=== PATIENT | female | born 1960 | race Caucasian/White ===

== ENCOUNTER 2017-10-06 08:17 | Inpatient (IN) | payer BC ==
[2017-10-06 08:44] LABS: ADD MAN DIFF? NO
[2017-10-06 08:54] LABS: TROPONIN BY ISTAT 0.01 ng/ml (<0.08)
[2017-10-06 08:59] LABS: ANION GAP 10 (6-14); BLOOD UREA NITROGEN 21 mg/dL (7-20); BUN/CREATININE RATIO 21 (6-20); CALCIUM 9.3 mg/dL (8.5-10.1); CARBON DIOXIDE 26 mmol/L (21-32); CHLORIDE 105 mmol/L (98-107); GFR 57.6; GLUCOSE 108 mg/dL (70-99); POTASSIUM 4.4 mmol/L (3.5-5.1); SODIUM 141 mmol/L (136-145)
[2017-10-06 09:05] LABS: ALBUMIN 3.7 g/dL (3.4-5.0); ALBUMIN/GLOBULIN RATIO 1.1 (1.0-1.7); ALK PHOS 104 U/L (46-116); ALT (SGPT) 36 U/L (14-59); AST (SGOT) 23 U/L (15-37); LIPASE 92 U/L (73-393); TOTAL BILIRUBIN 1.4 mg/dL (0.2-1.0)
[2017-10-06 09:08] LABS: BASO % 0 % (0-3); EOS % 0 % (0-3); HEMATOCRIT 38.4 % (36.0-47.0); HEMOGLOBIN 12.5 g/dL (12.0-15.5); LYMPH # 0.7 x10^3/uL (1.0-4.8); LYMPH % 15 % (24-48); MEAN CORPUSCULAR HEMOGLOBIN 30 pg (25-35); MEAN CORPUSCULAR HGB CONC 33 g/dL (31-37); MEAN CORPUSCULAR VOLUME 92 fL (79-100); MONO # 0.2 x10^3/uL (0.0-1.1); MONO % 5 % (0-9); NEUT # 3.9 x10^3uL (1.8-7.7); NEUT % 81 % (31-73); PLATELET COUNT 128 x10^3/uL (140-400); RED CELL DISTRIBUTION WIDTH 15.6 % (11.5-14.5); WHITE BLOOD COUNT 4.8 x10^3/uL (4.0-11.0)
[2017-10-06 09:11] LABS: NT-PRO BNP 7865 pg/mL (0-124)
[2017-10-06 09:13] LABS: CKMB MASS 0.6 ng/mL (0.0-3.6); CREATINE KINASE 40 U/L (26-192)
[2017-10-06 09:30] LABS: INFLUENZA A PATIENT NEGATIVE (NEGATIVE); INFLUENZA B PATIENT NEGATIVE (NEGATIVE); OBC FLU VALID
[2017-10-06 09:31] LABS: INR 1.1 (0.8-1.1); PROTHROMBIN TIME PATIENT 13.9 SEC (11.7-14.0)
[2017-10-06 09:34] LABS: D-DIMER 0.56 ug/mlFEU (0.00-0.50)
[2017-10-06 10:41] LABS: BILIRUBIN,URINE NEGATIVE (NEG); CLARITY,URINE CLEAR; COLOR,URINE AMBER; GLUCOSE,URINE NEGATIVE (NEG); NITRITE,URINE NEGATIVE (NEG); PROTEIN,URINE NEGATIVE (NEG-TRACE)
[2017-10-06 11:06] LABS: BACTERIA,URINE FEW /HPF (0-FEW); RBC,URINE OCC /HPF (0-2); SQUAMOUS EPITHELIAL CELL,UR FEW /LPF; WBC,URINE OCC /HPF (0-4)
[2017-10-06] MEDS: ONDANSETRON PF 4 MG/2 ML VIAL. IV ×4 (13:23→20:30)
[2017-10-06] MEDS: fentaNYL PF VIAL 100 MCG/2 ML VIAL IV ×2 (13:26)
[2017-10-06] MEDS: FUROSEMIDE 40 MG/4 ML VIAL. IVP ×2 (17:22)
[2017-10-06] MEDS: oxyCODONE/APAP 5/325 1 TAB TABLET PO ×2 (17:25)
[2017-10-06] MEDS: ENOXAPARIN 40 MG/0.4 ML SYRINGE. SQ ×2 (20:30)
[2017-10-06] MEDS: ACETAMINOPHEN 325 MG TABLET. PO ×2 (20:36)
[2017-10-07] MEDS: ACETAMINOPHEN 325 MG TABLET. PO ×6 (04:39→14:12)
[2017-10-07 06:28] LABS: ADD MAN DIFF? NO
[2017-10-07 06:50] LABS: BASO % 0 % (0-3); EOS % 0 % (0-3); HEMATOCRIT 36.2 % (36.0-47.0); HEMOGLOBIN 12.1 g/dL (12.0-15.5); LYMPH # 0.8 x10^3/uL (1.0-4.8); LYMPH % 17 % (24-48); MEAN CORPUSCULAR HEMOGLOBIN 30 pg (25-35); MEAN CORPUSCULAR HGB CONC 34 g/dL (31-37); MEAN CORPUSCULAR VOLUME 91 fL (79-100); MONO # 0.2 x10^3/uL (0.0-1.1); MONO % 5 % (0-9); NEUT # 3.6 x10^3uL (1.8-7.7); NEUT % 78 % (31-73); PLATELET COUNT 115 x10^3/uL (140-400); RED CELL DISTRIBUTION WIDTH 15.3 % (11.5-14.5); WHITE BLOOD COUNT 4.6 x10^3/uL (4.0-11.0)
[2017-10-07 07:14] LABS: FREE T4 1.06 ng/dL (0.76-1.46)
[2017-10-07 07:14] LABS: THYROID STIM HORMONE (TSH) 3.123 uIU/mL (0.358-3.74)
[2017-10-07 07:20] LABS: ALBUMIN 3.6 g/dL (3.4-5.0); ALBUMIN/GLOBULIN RATIO 1.2 (1.0-1.7); ALK PHOS 86 U/L (46-116); ALT (SGPT) 32 U/L (14-59); ANION GAP 6 (6-14); AST (SGOT) 20 U/L (15-37); BLOOD UREA NITROGEN 19 mg/dL (7-20); BUN/CREATININE RATIO 24 (6-20); CALCIUM 8.9 mg/dL (8.5-10.1); CARBON DIOXIDE 31 mmol/L (21-32); CHLORIDE 104 mmol/L (98-107); CREATININE 0.8 mg/dL (0.6-1.0); GFR 74.5; GLUCOSE 99 mg/dL (70-99); POTASSIUM 3.7 mmol/L (3.5-5.1); SODIUM 141 mmol/L (136-145); TOTAL BILIRUBIN 1.5 mg/dL (0.2-1.0); TOTAL PROTEIN 6.6 g/dL (6.4-8.2)
[2017-10-07] MEDS: ASPIRIN ENTERIC COATED 81 MG TABLET.DR. PO ×2 (09:43)
[2017-10-07] MEDS: FUROSEMIDE 40 MG/4 ML VIAL. IVP ×4 (09:43→17:21)
[2017-10-07] MEDS ORDERED: DOCUSATE SODIUM 100 MG CAPSULE. PO ×2 (13:30)
[2017-10-07] MEDS ORDERED: MORPHINE SULFATE 2 MG/ML DISP.SYRIN. IV ×2 (13:30)
[2017-10-07] MEDS ORDERED: hydrALAZINE 20 MG/ML VIAL. IVP ×2 (13:30)
[2017-10-07] MEDS ORDERED: ONDANSETRON PF 4 MG/2 ML VIAL. IV ×2 (13:30)
[2017-10-07] MEDS: ENOXAPARIN 40 MG/0.4 ML SYRINGE. SQ ×2 (17:22)
[2017-10-08 04:52] LABS: ADD MAN DIFF? NO
[2017-10-08 05:09] LABS: BASO % 0 % (0-3); EOS % 0 % (0-3); HEMATOCRIT 38.9 % (36.0-47.0); LYMPH # 0.9 x10^3/uL (1.0-4.8); LYMPH % 19 % (24-48); MEAN CORPUSCULAR HEMOGLOBIN 30 pg (25-35); MEAN CORPUSCULAR HGB CONC 33 g/dL (31-37); MEAN CORPUSCULAR VOLUME 90 fL (79-100); MONO # 0.2 x10^3/uL (0.0-1.1); MONO % 5 % (0-9); NEUT # 3.4 x10^3uL (1.8-7.7); NEUT % 75 % (31-73); PLATELET COUNT 123 x10^3/uL (140-400); RED BLOOD COUNT 4.31 x10^6/uL (3.50-5.40); RED CELL DISTRIBUTION WIDTH 15.3 % (11.5-14.5); WHITE BLOOD COUNT 4.6 x10^3/uL (4.0-11.0)
[2017-10-08 05:35] LABS: ANION GAP 8 (6-14); BLOOD UREA NITROGEN 22 mg/dL (7-20); CALCIUM 9.4 mg/dL (8.5-10.1); CARBON DIOXIDE 31 mmol/L (21-32); CHLORIDE 101 mmol/L (98-107); CREATININE 0.9 mg/dL (0.6-1.0); GLUCOSE 100 mg/dL (70-99); POTASSIUM 3.6 mmol/L (3.5-5.1); SODIUM 140 mmol/L (136-145)
[2017-10-08] MEDS: FUROSEMIDE 40 MG/4 ML VIAL. IVP ×4 (06:12→19:45)
[2017-10-08] MEDS: ACETAMINOPHEN 325 MG TABLET. PO ×2 (07:51)
[2017-10-08] MEDS: ASPIRIN ENTERIC COATED 81 MG TABLET.DR. PO ×2 (10:07)
[2017-10-08] MEDS ORDERED: LIDOCAINE 2% 20 ML VIAL. ×2 (13:39)
[2017-10-08] MEDS ORDERED: IOHEXOL 300 MG/ML 100ML VIAL. ×2 (13:39)
[2017-10-08] MEDS ORDERED: fentaNYL PF VIAL 100 MCG/2 ML VIAL ×2 (14:52)
[2017-10-08] MEDS ORDERED: MIDAZOLAM HCL/PF 2 MG/2 ML VIAL. ×2 (14:52)
[2017-10-08] MEDS: MIDAZOLAM HCL/PF 2 MG/2 ML VIAL. IV ×2 (15:00)
[2017-10-08] MEDS: IODIXANOL 320 MG/ML 100 ML VIAL. IART ×2 (15:00)
[2017-10-08] MEDS: LIDOCAINE 2% 20 ML VIAL. IJ ×2 (15:00)
[2017-10-08] MEDS: fentaNYL PF VIAL 100 MCG/2 ML VIAL IV ×2 (15:00)
[2017-10-08] MEDS ORDERED: CONTRAST GIVEN MC ×2 (15:15)
[2017-10-08] MEDS: TRIAMCINOLONE ACETONIDE 0.1% TOPICAL CREAM 15GM TUBE. TP ×6 (16:00→20:49)
[2017-10-08] MEDS: traMADol 50 MG TABLET PO ×2 (17:29)
[2017-10-08] MEDS: ENOXAPARIN 40 MG/0.4 ML SYRINGE. SQ ×2 (19:45)
[2017-10-09] MEDS: FUROSEMIDE 40 MG/4 ML VIAL. IVP ×4 (06:27→18:00)
[2017-10-09 06:42] LABS: ADD MAN DIFF? NO
[2017-10-09 06:53] LABS: BASO % 0 % (0-3); EOS % 0 % (0-3); HEMATOCRIT 41.8 % (36.0-47.0); HEMOGLOBIN 13.7 g/dL (12.0-15.5); LYMPH # 1.1 x10^3/uL (1.0-4.8); LYMPH % 28 % (24-48); MEAN CORPUSCULAR HEMOGLOBIN 31 pg (25-35); MEAN CORPUSCULAR HGB CONC 33 g/dL (31-37); MEAN CORPUSCULAR VOLUME 93 fL (79-100); MONO # 0.3 x10^3/uL (0.0-1.1); MONO % 7 % (0-9); NEUT # 2.5 x10^3uL (1.8-7.7); NEUT % 65 % (31-73); PLATELET COUNT 123 x10^3/uL (140-400); RED BLOOD COUNT 4.49 x10^6/uL (3.50-5.40); RED CELL DISTRIBUTION WIDTH 15.7 % (11.5-14.5); WHITE BLOOD COUNT 3.9 x10^3/uL (4.0-11.0)
[2017-10-09 07:14] LABS: ANION GAP 4 (6-14); BLOOD UREA NITROGEN 25 mg/dL (7-20); CALCIUM 9.7 mg/dL (8.5-10.1); CARBON DIOXIDE 37 mmol/L (21-32); CHLORIDE 100 mmol/L (98-107); CREATININE 0.9 mg/dL (0.6-1.0); GLUCOSE 85 mg/dL (70-99); SODIUM 141 mmol/L (136-145)
[2017-10-09 07:24] LABS: POTASSIUM 4.5 mmol/L (3.5-5.1)
[2017-10-09] MEDS: ASPIRIN ENTERIC COATED 81 MG TABLET.DR. PO ×2 (08:48)
[2017-10-09] MEDS: ACETAMINOPHEN 325 MG TABLET. PO ×2 (08:48)
[2017-10-09] MEDS: TRIAMCINOLONE ACETONIDE 0.1% TOPICAL CREAM 15GM TUBE. TP ×4 (11:35→21:23)
[2017-10-09] MEDS: ENOXAPARIN 40 MG/0.4 ML SYRINGE. SQ ×2 (19:48)
[2017-10-10] MEDS: FUROSEMIDE 40 MG/4 ML VIAL. IVP ×4 (06:18→18:04)
[2017-10-10] MEDS: ASPIRIN ENTERIC COATED 81 MG TABLET.DR. PO ×2 (08:12)
[2017-10-10] MEDS: ACETAMINOPHEN 325 MG TABLET. PO ×2 (08:12)
[2017-10-10] MEDS: TRIAMCINOLONE ACETONIDE 0.1% TOPICAL CREAM 15GM TUBE. TP ×4 (08:16→20:01)
[2017-10-10] MEDS ORDERED: ZOLPIDEM 5 MG TABLET. PO ×4 (11:45)
[2017-10-10 12:17] LABS: ADD MAN DIFF? NO
[2017-10-10 12:39] LABS: PROTHROMBIN TIME PATIENT 12.7 SEC (11.7-14.0)
[2017-10-10 12:40] LABS: ALBUMIN 4.4 g/dL (3.4-5.0); ALBUMIN/GLOBULIN RATIO 1.4 (1.0-1.7); ALK PHOS 102 U/L (46-116); ALT (SGPT) 35 U/L (14-59); ANION GAP 7 (6-14); AST (SGOT) 35 U/L (15-37); BASO % 0 % (0-3); BLOOD UREA NITROGEN 26 mg/dL (7-20); BUN/CREATININE RATIO 24 (6-20); CALCIUM 9.9 mg/dL (8.5-10.1); CARBON DIOXIDE 32 mmol/L (21-32); CHLORIDE 97 mmol/L (98-107); CREATININE 1.1 mg/dL (0.6-1.0); EOS % 0 % (0-3); GFR 51.6; GLUCOSE 107 mg/dL (70-99); HEMOGLOBIN 14.1 g/dL (12.0-15.5); LYMPH # 0.7 x10^3/uL (1.0-4.8); LYMPH % 15 % (24-48); MEAN CORPUSCULAR HEMOGLOBIN 30 pg (25-35); MEAN CORPUSCULAR HGB CONC 34 g/dL (31-37); MEAN CORPUSCULAR VOLUME 89 fL (79-100); MONO # 0.3 x10^3/uL (0.0-1.1); MONO % 7 % (0-9); NEUT # 3.8 x10^3uL (1.8-7.7); NEUT % 77 % (31-73); PARTIAL THROMBOPLASTIN TIME 51 SEC (24-38); PLATELET COUNT 134 x10^3/uL (140-400); POTASSIUM 4.3 mmol/L (3.5-5.1); RED BLOOD COUNT 4.74 x10^6/uL (3.50-5.40); SODIUM 136 mmol/L (136-145); TOTAL BILIRUBIN 0.7 mg/dL (0.2-1.0); TOTAL PROTEIN 7.5 g/dL (6.4-8.2); WHITE BLOOD COUNT 4.9 x10^3/uL (4.0-11.0)
[2017-10-10 20:09] LABS: MRSA BY PCR Negative (Negative)
[2017-10-11 03:45] LABS: POC GLUCOSE 105 mg/dL (70-99)
[2017-10-11] MEDS: HEPARIN 20,000 UNIT in IV RINGERS,LACTATED 1000ML 1,000 ML IRR (06:00)
[2017-10-11] MEDS: FUROSEMIDE 40 MG/4 ML VIAL. IVP ×2 (06:00)
[2017-10-11 06:39] LABS: ADD MAN DIFF? NO
[2017-10-11 06:56] LABS: BASO % 0 % (0-3); EOS % 0 % (0-3); HEMATOCRIT 39.9 % (36.0-47.0); HEMOGLOBIN 13.5 g/dL (12.0-15.5); LYMPH # 1.2 x10^3/uL (1.0-4.8); LYMPH % 32 % (24-48); MEAN CORPUSCULAR HEMOGLOBIN 30 pg (25-35); MEAN CORPUSCULAR HGB CONC 34 g/dL (31-37); MEAN CORPUSCULAR VOLUME 88 fL (79-100); MONO # 0.3 x10^3/uL (0.0-1.1); MONO % 9 % (0-9); NEUT # 2.2 x10^3uL (1.8-7.7); NEUT % 59 % (31-73); PLATELET COUNT 113 x10^3/uL (140-400); RED BLOOD COUNT 4.51 x10^6/uL (3.50-5.40); RED CELL DISTRIBUTION WIDTH 14.7 % (11.5-14.5); WHITE BLOOD COUNT 3.8 x10^3/uL (4.0-11.0)
[2017-10-11] MEDS: IV RINGERS,LACTATED 1000ML 1,000 ML IV ×4 (07:00→18:15)
[2017-10-11] MEDS ORDERED: PROCHLORPERAZINE 10 MG/2 ML VIAL. IV ×2 (07:00)
[2017-10-11] MEDS ORDERED: fentaNYL PF VIAL 100 MCG/2 ML VIAL IV ×4 (07:00)
[2017-10-11] MEDS ORDERED: LIDOCAINE 1% PF 2 ML VIAL. ID ×2 (07:00)
[2017-10-11] MEDS ORDERED: ONDANSETRON PF 4 MG/2 ML VIAL. IV ×2 (07:00)
[2017-10-11] MEDS ORDERED: MORPHINE SULFATE 2 MG/ML DISP.SYRIN. IV ×4 (07:00→16:30)
[2017-10-11] MEDS ORDERED: HYDROmorphone 2 MG/ML VIAL IV ×2 (07:00)
[2017-10-11 07:04] LABS: ANION GAP 4 (6-14); BLOOD UREA NITROGEN 28 mg/dL (7-20); CALCIUM 9.3 mg/dL (8.5-10.1); CARBON DIOXIDE 35 mmol/L (21-32); CHLORIDE 97 mmol/L (98-107); CREATININE 0.8 mg/dL (0.6-1.0); GFR 74.5; GLUCOSE 100 mg/dL (70-99); POTASSIUM 3.4 mmol/L (3.5-5.1); SODIUM 136 mmol/L (136-145)
[2017-10-11] MEDS ORDERED: GELATIN SPONGE SIZE 100. ×2 (07:38)
[2017-10-11] MEDS ORDERED: THROMBIN TOPICAL 20,000 UNIT SPRAY.SYRN KIT TP ×2 (07:38)
[2017-10-11] MEDS ORDERED: SURGICEL HEMOSTAT 4X8 EACH. ×2 (07:38)
[2017-10-11] MEDS ORDERED: SURGICEL NU-KNIT 3X4. ×2 (07:38)
[2017-10-11 08:26] LABS: POC GLUCOSE 124 mg/dL (70-99)
[2017-10-11] MEDS: TRIAMCINOLONE ACETONIDE 0.1% TOPICAL CREAM 15GM TUBE. TP ×4 (09:00→21:29)
[2017-10-11] MEDS ORDERED: MIDAZOLAM HCL/PF 5 MG/5 ML VIAL. ×2 (09:45)
[2017-10-11] MEDS ORDERED: SUFentanil 100 MCG/2 ML AMPUL. ×4 (09:45→12:27)
[2017-10-11] MEDS ORDERED: VECURONIUM BOLUS 10 MG VIAL. IV ×6 (09:45→14:26)
[2017-10-11] MEDS ORDERED: LIDOCAINE 2% PF Vial for OR 5 ML VIAL. ×6 (09:46→16:07)
[2017-10-11] MEDS ORDERED: WATER FOR INJECTION,STERILE 10 ML IJ ×6 (09:46→14:27)
[2017-10-11] MEDS ORDERED: ETOMIDATE 20 MG/10 ML VIAL. IV ×2 (09:46)
[2017-10-11] MEDS ORDERED: HEPARIN 30,000 UNIT/30 ML VIAL. ×6 (09:46→16:07)
[2017-10-11] MEDS ORDERED: EPINEPHrine SYRINGE 1 MG/10 ML SYRINGE ×2 (09:46)
[2017-10-11] MEDS ORDERED: AMINOCAPROIC ACID 5,000 MG/20 ML VIAL. IV ×8 (09:46→16:09)
[2017-10-11] MEDS ORDERED: ALBUMIN HUMAN 5% 500 ML IV ×2 (09:47)
[2017-10-11] MEDS ORDERED: NITROGLYCERIN PREMIX 250 ML IV ×2 (09:47)
[2017-10-11] MEDS ORDERED: PHENYLEPHRINE 10 MG/ML VIAL. ×6 (09:47)
[2017-10-11] MEDS ORDERED: ePHEDrine PF IN SALINE 50 MG/5 ML DISP.SYRIN IV (09:57)
[2017-10-11 10:28] LABS: HEMOGLOBIN A1C 4.6 % (4.8-5.6)
[2017-10-11] MEDS ORDERED: VANCOMYCIN 1.5 GM in IV DEXTROSE 5% 500 ML IV (11:00)
[2017-10-11] MEDS: VANCOMYCIN 1.5 GM in IV DEXTROSE 5% 500 ML IV ×2 (11:18→23:41)
[2017-10-11] MEDS: POTASSIUM CHLORIDE 15 MEQ, SODIUM BICARBONATE VIAL 12.5 MEQ in IV ELECTROLYTE-S (PH 7.4... IRR ×2 (12:58)
[2017-10-11] MEDS: POTASSIUM CHLORIDE 70 MEQ, SODIUM BICARBONATE VIAL 12.5 MEQ, LIDOCAINE 2% 24 ML in IV E... IRR ×2 (12:58)
[2017-10-11] MEDS ORDERED: ALBUMIN HUMAN 25% 100 ML IV ×4 (14:29→16:07)
[2017-10-11] MEDS ORDERED: AMIODARONE 150 MG/3 ML VIAL ×2 (14:35)
[2017-10-11] MEDS ORDERED: PROTAMINE 50 MG/5 ML VIAL. IV ×4 (14:44→15:49)
[2017-10-11] MEDS ORDERED: PROTAMINE 250 MG/25 ML VIAL IV ×4 (14:44→15:49)
[2017-10-11] MEDS ORDERED: AMIODARONE 900 MG in IV DEXTROSE 5% 500 ML IV (14:45)
[2017-10-11] MEDS ORDERED: HEPARIN for IV BOLUS 10,000 UNIT/10 ML VIAL. ×4 (15:41→16:07)
[2017-10-11] MEDS ORDERED: SODIUM BICARB ADULT 8.4% 50 MEQ/50 ML DISP.SYRIN. ×4 (15:41→16:08)
[2017-10-11] MEDS ORDERED: MANNITOL 25% 12.5 G/50 ML VIAL FOR OR. ×4 (15:41→16:07)
[2017-10-11] MEDS ORDERED: ALBUMIN HUMAN 25% 200 ML IV ×2 (15:41)
[2017-10-11] MEDS ORDERED: MAGNESIUM SULFATE 5 GM/10 ML VIAL. ×4 (15:41→16:07)
[2017-10-11] MEDS ORDERED: CALCIUM CHLORIDE 1,000 MG/10 ML DISP.SYRIN IV ×4 (15:41→16:08)
[2017-10-11 15:46] LABS: IMMEDIATE SPIN CROSSMATCH 1
[2017-10-11 16:10] LABS: IMMEDIATE SPIN CROSSMATCH 1
[2017-10-11 16:18] LABS: IMMEDIATE SPIN CROSSMATCH 1 4
[2017-10-11] MEDS: MINERAL OIL 10 ML VIAL MC ×2 (16:23)
[2017-10-11] MEDS ORDERED: MEPERIDINE PF 25 MG/ML VIAL. IV ×2 (16:30)
[2017-10-11] MEDS ORDERED: 0.9 % SODIUM CHLORIDE 10 ML DISP.SYRIN. IV ×2 (16:30)
[2017-10-11] MEDS ORDERED: INSULIN REGULAR VIAL 150 UNIT in 0.9 % SODIUM CHLORIDE 150ML 150 ML IV (16:30)
[2017-10-11] MEDS ORDERED: METOCLOPRAMIDE HCL 10 MG/2 ML VIAL. IV ×2 (16:30)
[2017-10-11] MEDS ORDERED: ACETAMINOPHEN 325 MG TABLET. PO ×2 (16:30)
[2017-10-11] MEDS ORDERED: ALBUTEROL SULFATE 2.5 MG/3 ML NEBU. NEB ×2 (16:30)
[2017-10-11] MEDS ORDERED: BISACODYL 10 MG SUPP.RECT. PR ×2 (16:30)
[2017-10-11] MEDS ORDERED: ELECTROLYTE (ICU) PROTOCOL. MC ×2 (16:30)
[2017-10-11] MEDS ORDERED: DEXTROSE 50% 25 GM / 50ML DISP.SYRIN. IV ×2 (16:30)
[2017-10-11] MEDS ORDERED: ASPIRIN 300 MG SUPP.RECT PR ×2 (16:30)
[2017-10-11] MEDS ORDERED: KCL PER PROTOCOL MC ×2 (16:30)
[2017-10-11 16:53] LABS: HEMATOCRIT 23.2 % (36.0-47.0); HEMOGLOBIN 7.9 g/dL (12.0-15.5); PLATELET COUNT 61 x10^3/uL (140-400); WHITE BLOOD COUNT 5.7 x10^3/uL (4.0-11.0)
[2017-10-11] MEDS ORDERED: fentaNYL PF VIAL 100 MCG/2 ML VIAL ×2 (16:55)
[2017-10-11 17:02] LABS: INR 1.6 (0.8-1.1); PARTIAL THROMBOPLASTIN TIME 45 SEC (24-38); PROTHROMBIN TIME PATIENT 18.3 SEC (11.7-14.0)
[2017-10-11 17:03] LABS: FIBRINOGEN 155 mg/dL (200-440)
[2017-10-11 17:29] LABS: ART BE ISTAT 7 mmol/L (0-3); ART BE ISTAT 8 mmol/L (0-3); ART BE ISTAT 9 mmol/L (0-3); ART GLUC ISTAT 103 mg/dL (70-99); ART GLUC ISTAT 105 mg/dL (70-99); ART GLUC ISTAT 124 mg/dL (70-99); ART HCO3 ISTAT 30 mmol/L (21-28); ART HCO3 ISTAT 31 mmol/L (21-28); ART HCO3 ISTAT 32 mmol/L (21-28); ART HCT ISTAT 26 % (36-40); ART HCT ISTAT 30 % (36-40); ART HGB ISTAT 10.2 g/dL (12-15); ART HGB ISTAT 8.8 g/dL (12-15); ART ION CA ISTAT 1.05 mmol/L (1.13-1.32); ART ION CA ISTAT 1.07 mmol/L (1.13-1.32); ART ION CA ISTAT 1.08 mmol/L (1.13-1.32); ART K ISTAT 2.9 mmol/L (3.5-5.0); ART K ISTAT 4.3 mmol/L (3.5-5.0); ART NA ISTAT 134 mmol/L (135-145); ART NA ISTAT 135 mmol/L (135-145); ART NA ISTAT 136 mmol/L (135-145); ART PCO2 ISTAT 35 mmHg (35-45); ART PCO2 ISTAT 36 mmHg (35-45); ART PCO2 ISTAT 38 mmHg (35-45); ART PH ISTAT 7.51 (7.35-7.45); ART PH ISTAT 7.54 (7.35-7.45); ART PH ISTAT 7.55 (7.35-7.45); ART PO2 ISTAT 314 mmHg (75-100); ART PO2 ISTAT 343 mmHg (75-100); ART PO2 ISTAT 345 mmHg (75-100); ART SAT O2 SAT 100 % (95-99); ART TCO2 ISTAT 31 mmol/L (21-32); ART TCO2 ISTAT 32 mmol/L (21-32); ART TCO2 ISTAT 33 mmol/L (21-32); FIO2 ISTAT 100; TOSPEC ART; TOSPEC VEN; VEN BASE EXCESS ISTAT 5 mmol/L (0-3); VEN GLUC ISTAT 169 mg/dL (70-99); VEN HCO3 ISTAT 30 mmol/L (24-28); VEN HCT ISTAT 35 % (36-40); VEN HGB ISTAT 11.9 g/dL (12-15); VEN ION CA ISTAT 1.22 mmol/L (1.13-1.32); VEN K ISTAT 3.5 mmol/L (3.5-5.0); VEN NA ISTAT 133 mmol/L (135-145); VEN O2 ISTAT 41 mmHg (20-40); VEN PCO2 ISTAT 45 mmHg (41-51); VEN PH ISTAT 7.43 (7.32-7.42); VEN SO2 ISTAT 77 %; VEN TCO2 ISTAT 31 mmol/L (21-32)
[2017-10-11 17:30] LABS: ART BE ISTAT 12 mmol/L (0-3); ART BE ISTAT 2 mmol/L (0-3); ART BE ISTAT 5 mmol/L (0-3); ART GLUC ISTAT 101 mg/dL (70-99); ART GLUC ISTAT 270 mg/dL (70-99); ART GLUC ISTAT 83 mg/dL (70-99); ART GLUC ISTAT 90 mg/dL (70-99); ART HCO3 ISTAT 25 mmol/L (21-28); ART HCO3 ISTAT 26 mmol/L (21-28); ART HCO3 ISTAT 34 mmol/L (21-28); ART HCT ISTAT 19 % (36-40); ART HCT ISTAT 22 % (36-40); ART HCT ISTAT 25 % (36-40); ART HCT ISTAT 33 % (36-40); ART HGB ISTAT 11.2 g/dL (12-15); ART HGB ISTAT 6.5 g/dL (12-15); ART HGB ISTAT 7.5 g/dL (12-15); ART HGB ISTAT 8.5 g/dL (12-15); ART ION CA ISTAT 1.13 mmol/L (1.13-1.32); ART ION CA ISTAT 1.43 mmol/L (1.13-1.32); ART ION CA ISTAT 1.49 mmol/L (1.13-1.32); ART ION CA ISTAT 1.75 mmol/L (1.13-1.32); ART K ISTAT 3.4 mmol/L (3.5-5.0); ART K ISTAT 3.7 mmol/L (3.5-5.0); ART K ISTAT 4.4 mmol/L (3.5-5.0); ART NA ISTAT 131 mmol/L (135-145); ART NA ISTAT 137 mmol/L (135-145); ART NA ISTAT 139 mmol/L (135-145); ART PCO2 ISTAT 28 mmHg (35-45); ART PCO2 ISTAT 32 mmHg (35-45); ART PCO2 ISTAT 42 mmHg (35-45); ART PH ISTAT 7.53 (7.35-7.45); ART PH ISTAT 7.55 (7.35-7.45); ART PH ISTAT 7.59 (7.35-7.45); ART PO2 ISTAT 146 mmHg (75-100); ART PO2 ISTAT 217 mmHg (75-100); ART PO2 ISTAT 294 mmHg (75-100); ART PO2 ISTAT 392 mmHg (75-100); ART SAT O2 SAT 100 % (95-99); ART TCO2 ISTAT 26 mmol/L (21-32); ART TCO2 ISTAT 27 mmol/L (21-32); ART TCO2 ISTAT 36 mmol/L (21-32); FIO2 ISTAT 100; TOSPEC ART; TOSPEC VEN; VEN BASE EXCESS ISTAT -1 mmol/L (0-3); VEN GLUC ISTAT 104 mg/dL (70-99); VEN HCO3 ISTAT 23 mmol/L (24-28); VEN HCT ISTAT 23 % (36-40); VEN HGB ISTAT 7.8 g/dL (12-15); VEN ION CA ISTAT 1.11 mmol/L (1.13-1.32); VEN K ISTAT 3.3 mmol/L (3.5-5.0); VEN NA ISTAT 141 mmol/L (135-145); VEN O2 ISTAT 34 mmHg (20-40); VEN PCO2 ISTAT 30 mmHg (41-51); VEN PH ISTAT 7.49 (7.32-7.42); VEN SO2 ISTAT 71 %; VEN TCO2 ISTAT 24 mmol/L (21-32)
[2017-10-11 18:13] LABS: BASE EXCESS COOX 2 mmol/L (-3-3); CARBON MONOXIDE 0.3 % (0.0-1.9); HCO3 COOX 25 mmol/L (21-28); METHEMOGLOBIN 0.3 % (0.0-1.9); OXYHEMOGLOBIN 98.3 %; PCO2 COOX 34 mmHg (35-46); PH COOX 7.49 (7.35-7.45); PO2 COOX 319 mmHg (75-108); SAT O2 COOX 99 % (92-99); TOTAL HEMOGLOBIN 10.2 g/dL
[2017-10-11] MEDS: MORPHINE SULFATE 4 MG/ML DISP.SYRIN. IV ×6 (18:14→22:35)
[2017-10-11 18:15] LABS: FIO2 COOX 100
[2017-10-11] MEDS: PROPOFOL 100 ML IV ×2 (18:16)
[2017-10-11 18:24] LABS: POC GLUCOSE 116 mg/dL (70-99)
[2017-10-11] MEDS: ALBUMIN HUMAN 5% 250 ML IV ×4 (18:39→19:58)
[2017-10-11 18:52] LABS: HEMATOCRIT 28.2 % (36.0-47.0); HEMOGLOBIN 9.6 g/dL (12.0-15.5); MEAN CORPUSCULAR HEMOGLOBIN 31 pg (25-35); MEAN CORPUSCULAR HGB CONC 34 g/dL (31-37); MEAN CORPUSCULAR VOLUME 89 fL (79-100); PLATELET COUNT 72 x10^3/uL (140-400); RED BLOOD COUNT 3.16 x10^6/uL (3.50-5.40); RED CELL DISTRIBUTION WIDTH 14.6 % (11.5-14.5); WHITE BLOOD COUNT 7.3 x10^3/uL (4.0-11.0)
[2017-10-11 19:01] LABS: INR 1.4 (0.8-1.1); PARTIAL THROMBOPLASTIN TIME 35 SEC (24-38); PROTHROMBIN TIME PATIENT 16.3 SEC (11.7-14.0)
[2017-10-11 19:03] LABS: ANION GAP 11 (6-14); BLOOD UREA NITROGEN 22 mg/dL (7-20); CALCIUM 10.2 mg/dL (8.5-10.1); CARBON DIOXIDE 25 mmol/L (21-32); CHLORIDE 105 mmol/L (98-107); CREATININE 0.8 mg/dL (0.6-1.0); GFR 74.5; GLUCOSE 121 mg/dL (70-99); MAGNESIUM 2.5 mg/dL (1.8-2.4); SODIUM 141 mmol/L (136-145)
[2017-10-11] MEDS: POTASSIUM CHLORIDE 20MEQ 50 ML IV ×2 (19:50)
[2017-10-11] MEDS: INSULIN REGULAR VIAL 150 UNIT in 0.9 % SODIUM CHLORIDE 150ML 150 ML IV (21:27)
[2017-10-11 21:28] LABS: BASE EXCESS ABG 1 mmol/L (-3-3); HCO3 ABG 27 mmol/L (21-28); PCO2 ABG 47 mmHg (35-46); PH ABG 7.37 (7.35-7.45); PO2 ABG 98 mmHg (75-108); SAT O2 ABG 96 % (92-99)
[2017-10-11] MEDS: FAMOTIDINE 20 MG/2 ML VIAL IVP ×2 (21:29)
[2017-10-11] MEDS: SENNOSIDES/DOCUSATE 8.6/50MG TABLET. PO ×2 (21:30)
[2017-10-11 21:32] LABS: FIO2 ABG 40
[2017-10-11] MEDS: ONDANSETRON PF 4 MG/2 ML VIAL. IV ×2 (21:39)
[2017-10-11 22:18] LABS: POC GLUCOSE 150 mg/dL (70-99)
[2017-10-11 22:18] LABS: POC GLUCOSE 151 mg/dL (70-99)
[2017-10-11 22:19] LABS: HEMATOCRIT 25.2 % (36.0-47.0); HEMOGLOBIN 8.6 g/dL (12.0-15.5); MEAN CORPUSCULAR HGB CONC 34 g/dL (31-37)
[2017-10-11 23:12] LABS: POC GLUCOSE 123 mg/dL (70-99)
[2017-10-11] MEDS: oxyCODONE/APAP 5/325 1 TAB TABLET PO ×2 (23:57)
[2017-10-12] MEDS: POTASSIUM CHLORIDE 20MEQ 50 ML IV ×2 (00:03)
[2017-10-12] MEDS: MORPHINE SULFATE 4 MG/ML DISP.SYRIN. IV ×8 (00:03→20:33)
[2017-10-12 00:19] LABS: POC GLUCOSE 162 mg/dL (70-99)
[2017-10-12] MEDS: oxyCODONE/APAP 5/325 1 TAB TABLET PO ×16 (00:39→18:37)
[2017-10-12] MEDS: KETOROLAC 15 MG/ML VIAL. IV ×2 (01:02)
[2017-10-12 01:10] LABS: POC GLUCOSE 183 mg/dL (70-99)
[2017-10-12 02:07] LABS: POC GLUCOSE 154 mg/dL (70-99)
[2017-10-12 03:45] LABS: POC GLUCOSE 134 mg/dL (70-99)
[2017-10-12 04:23] LABS: POC GLUCOSE 121 mg/dL (70-99)
[2017-10-12 06:11] LABS: HEMATOCRIT 24.5 % (36.0-47.0); HEMOGLOBIN 8.3 g/dL (12.0-15.5); MEAN CORPUSCULAR HEMOGLOBIN 31 pg (25-35); MEAN CORPUSCULAR HGB CONC 34 g/dL (31-37); MEAN CORPUSCULAR VOLUME 90 fL (79-100); PLATELET COUNT 55 x10^3/uL (140-400); RED BLOOD COUNT 2.72 x10^6/uL (3.50-5.40); RED CELL DISTRIBUTION WIDTH 14.6 % (11.5-14.5); WHITE BLOOD COUNT 6.3 x10^3/uL (4.0-11.0)
[2017-10-12 06:32] LABS: ANION GAP 7 (6-14); BLOOD UREA NITROGEN 22 mg/dL (7-20); CALCIUM 8.8 mg/dL (8.5-10.1); CARBON DIOXIDE 25 mmol/L (21-32); CHLORIDE 105 mmol/L (98-107); CREATININE 0.8 mg/dL (0.6-1.0); GFR 74.5; GLUCOSE 136 mg/dL (70-99); MAGNESIUM 2.1 mg/dL (1.8-2.4); SODIUM 137 mmol/L (136-145)
[2017-10-12 06:36] LABS: POTASSIUM 4.7 mmol/L (3.5-5.1)
[2017-10-12 07:06] LABS: POC GLUCOSE 142 mg/dL (70-99)
[2017-10-12 07:06] LABS: POC GLUCOSE 126 mg/dL (70-99)
[2017-10-12] MEDS: ASPIRIN ENTERIC COATED 325 MG TABLET.DR. PO ×2 (07:47)
[2017-10-12] MEDS: SENNOSIDES/DOCUSATE 8.6/50MG TABLET. PO ×4 (07:47→20:33)
[2017-10-12] MEDS: FAMOTIDINE 20 MG/2 ML VIAL IVP ×2 (07:48)
[2017-10-12] MEDS: MAGNESIUM SULFATE 1GM 100 ML IV ×2 (08:17)
[2017-10-12] MEDS: TRIAMCINOLONE ACETONIDE 0.1% TOPICAL CREAM 15GM TUBE. TP ×4 (08:18→20:34)
[2017-10-12 08:22] LABS: POC GLUCOSE 130 mg/dL (70-99)
[2017-10-12] MEDS: METOPROLOL TART IMMED RELEASE 25 MG TABLET. PO ×2 (09:00)
[2017-10-12 09:36] LABS: POC GLUCOSE 138 mg/dL (70-99)
[2017-10-12] MEDS: VANCOMYCIN 1.5 GM in IV DEXTROSE 5% 500 ML IV ×2 (10:40→23:58)
[2017-10-12 10:47] LABS: POC GLUCOSE 127 mg/dL (70-99)
[2017-10-12 12:50] LABS: POC GLUCOSE 140 mg/dL (70-99)
[2017-10-12] MEDS: FUROSEMIDE 20 MG/2 ML VIAL. IVP ×2 (14:15)
[2017-10-12] MEDS: IV RINGERS,LACTATED 1000ML 1,000 ML IV ×2 (14:16)
[2017-10-12 15:16] LABS: POC GLUCOSE 128 mg/dL (70-99)
[2017-10-12 15:23] LABS: ACT+ 949 SEC (90-125)
[2017-10-12 15:23] LABS: ACT+ 351 SEC (90-125)
[2017-10-12 15:23] LABS: ACT+ 408 SEC (90-125)
[2017-10-12 15:23] LABS: ACT+ > 1005 SEC (90-125)
[2017-10-12 15:23] LABS: ACT+ 922 SEC (90-125)
[2017-10-12 15:23] LABS: ACT+ 680 SEC (90-125)
[2017-10-12 15:23] LABS: ACT+ 770 SEC (90-125)
[2017-10-12 15:23] LABS: ACT+ 127 SEC (90-125)
[2017-10-12 15:23] LABS: ACT+ 100 SEC (90-125)
[2017-10-12 18:23] LABS: POC GLUCOSE 133 mg/dL (70-99)
[2017-10-12] MEDS: FAMOTIDINE 20 MG TABLET. PO ×2 (20:34)
[2017-10-13] MEDS: oxyCODONE/APAP 5/325 1 TAB TABLET PO ×10 (00:09→20:43)
[2017-10-13 04:19] LABS: POC GLUCOSE 135 mg/dL (70-99)
[2017-10-13 06:34] LABS: POC GLUCOSE 129 mg/dL (70-99)
[2017-10-13 06:34] LABS: POC GLUCOSE 135 mg/dL (70-99)
[2017-10-13 06:34] LABS: POC GLUCOSE 174 mg/dL (70-99)
[2017-10-13 06:34] LABS: POC GLUCOSE 137 mg/dL (70-99)
[2017-10-13 06:34] LABS: POC GLUCOSE 123 mg/dL (70-99)
[2017-10-13 06:52] LABS: HEMATOCRIT 24.3 % (36.0-47.0); HEMOGLOBIN 8.3 g/dL (12.0-15.5); MEAN CORPUSCULAR HEMOGLOBIN 31 pg (25-35); MEAN CORPUSCULAR HGB CONC 34 g/dL (31-37); MEAN CORPUSCULAR VOLUME 90 fL (79-100); PLATELET COUNT 50 x10^3/uL (140-400); RED BLOOD COUNT 2.71 x10^6/uL (3.50-5.40); RED CELL DISTRIBUTION WIDTH 14.7 % (11.5-14.5); WHITE BLOOD COUNT 7.4 x10^3/uL (4.0-11.0)
[2017-10-13 07:00] LABS: MAGNESIUM 2.1 mg/dL (1.8-2.4)
[2017-10-13 07:11] LABS: INR 1.3 (0.8-1.1); PROTHROMBIN TIME PATIENT 15.1 SEC (11.7-14.0)
[2017-10-13] MEDS: TRIAMCINOLONE ACETONIDE 0.1% TOPICAL CREAM 15GM TUBE. TP ×4 (09:03→21:00)
[2017-10-13] MEDS: ASPIRIN ENTERIC COATED 325 MG TABLET.DR. PO ×2 (09:03)
[2017-10-13] MEDS: FAMOTIDINE 20 MG TABLET. PO ×4 (09:03→20:40)
[2017-10-13] MEDS: SENNOSIDES/DOCUSATE 8.6/50MG TABLET. PO ×4 (09:03→20:40)
[2017-10-13 11:57] LABS: ALBUMIN 3.2 g/dL (3.4-5.0); ALBUMIN/GLOBULIN RATIO 1.2 (1.0-1.7); ALK PHOS 66 U/L (46-116); ALT (SGPT) 28 U/L (14-59); AST (SGOT) 50 U/L (15-37); CHLORIDE 96 mmol/L (98-107); CREATININE 0.7 mg/dL (0.6-1.0); GFR 86.9; POTASSIUM 4.2 mmol/L (3.5-5.1); TOTAL BILIRUBIN 0.6 mg/dL (0.2-1.0); TOTAL PROTEIN 5.9 g/dL (6.4-8.2)
[2017-10-13 12:00] LABS: ANION GAP 8 (6-14); BLOOD UREA NITROGEN 14 mg/dL (7-20); BUN/CREATININE RATIO 20 (6-20); CARBON DIOXIDE 28 mmol/L (21-32); GLUCOSE 137 mg/dL (70-99); SODIUM 132 mmol/L (136-145)
[2017-10-13] MEDS ORDERED: DEXTROSE 50% 25 GM / 50ML DISP.SYRIN. IV ×2 (12:15)
[2017-10-13] MEDS: FUROSEMIDE 40 MG/4 ML VIAL. IVP ×2 (14:41)
[2017-10-13] MEDS: INSULIN ASPART 300 UNITS/3 ML INSULN.PEN SQ ×2 (17:00)
[2017-10-13] MEDS: IV RINGERS,LACTATED 1000ML 1,000 ML IV ×2 (17:00)
[2017-10-13 17:23] LABS: POC GLUCOSE 95 mg/dL (70-99)
[2017-10-13] MEDS: POTASSIUM CHLORIDE 20 MEQ TABLET.ER. PO ×2 (20:41)
[2017-10-13 20:52] LABS: POC GLUCOSE 106 mg/dL (70-99)
[2017-10-14] MEDS: oxyCODONE/APAP 5/325 1 TAB TABLET PO ×12 (00:38→23:32)
[2017-10-14] MEDS: IV RINGERS,LACTATED 1000ML 1,000 ML IV ×2 (05:02)
[2017-10-14 05:16] LABS: ADD MAN DIFF? NO
[2017-10-14 05:27] LABS: BASO % 0 % (0-3); EOS % 0 % (0-3); HEMATOCRIT 24.1 % (36.0-47.0); HEMOGLOBIN 8.2 g/dL (12.0-15.5); LYMPH # 0.7 x10^3/uL (1.0-4.8); LYMPH % 9 % (24-48); MEAN CORPUSCULAR HEMOGLOBIN 31 pg (25-35); MEAN CORPUSCULAR HGB CONC 34 g/dL (31-37); MEAN CORPUSCULAR VOLUME 89 fL (79-100); MONO # 0.5 x10^3/uL (0.0-1.1); MONO % 7 % (0-9); NEUT # 6.2 x10^3uL (1.8-7.7); NEUT % 84 % (31-73); PLATELET COUNT 68 x10^3/uL (140-400); RED BLOOD COUNT 2.69 x10^6/uL (3.50-5.40); RED CELL DISTRIBUTION WIDTH 14.4 % (11.5-14.5); WHITE BLOOD COUNT 7.4 x10^3/uL (4.0-11.0)
[2017-10-14 06:10] LABS: ANION GAP 7 (6-14); BLOOD UREA NITROGEN 10 mg/dL (7-20); CALCIUM 9.4 mg/dL (8.5-10.1); CARBON DIOXIDE 28 mmol/L (21-32); CHLORIDE 96 mmol/L (98-107); CREATININE 0.6 mg/dL (0.6-1.0); GFR 103.8; GLUCOSE 115 mg/dL (70-99); POTASSIUM 4.5 mmol/L (3.5-5.1); SODIUM 131 mmol/L (136-145)
[2017-10-14] MEDS: INSULIN ASPART 300 UNITS/3 ML INSULN.PEN SQ ×6 (08:00→17:00)
[2017-10-14] MEDS: TRIAMCINOLONE ACETONIDE 0.1% TOPICAL CREAM 15GM TUBE. TP ×4 (09:00→20:58)
[2017-10-14] MEDS: FAMOTIDINE 20 MG TABLET. PO ×4 (09:43→20:57)
[2017-10-14] MEDS: POTASSIUM CHLORIDE 20 MEQ TABLET.ER. PO ×4 (09:43→20:56)
[2017-10-14] MEDS: SENNOSIDES/DOCUSATE 8.6/50MG TABLET. PO ×4 (09:44→20:57)
[2017-10-14] MEDS: FUROSEMIDE 40 MG/4 ML VIAL. IVP ×2 (09:44)
[2017-10-14] MEDS: ASPIRIN ENTERIC COATED 325 MG TABLET.DR. PO ×2 (09:45)
[2017-10-15] MEDS: oxyCODONE/APAP 5/325 1 TAB TABLET PO ×8 (03:28→20:48)
[2017-10-15 05:34] LABS: ADD MAN DIFF? NO
[2017-10-15 05:41] LABS: BASO % 0 % (0-3); EOS % 0 % (0-3); HEMATOCRIT 21.4 % (36.0-47.0); HEMOGLOBIN 7.2 g/dL (12.0-15.5); LYMPH # 0.6 x10^3/uL (1.0-4.8); LYMPH % 14 % (24-48); MEAN CORPUSCULAR HEMOGLOBIN 30 pg (25-35); MEAN CORPUSCULAR HGB CONC 34 g/dL (31-37); MEAN CORPUSCULAR VOLUME 90 fL (79-100); MONO # 0.4 x10^3/uL (0.0-1.1); MONO % 10 % (0-9); NEUT # 3.1 x10^3uL (1.8-7.7); NEUT % 76 % (31-73); PLATELET COUNT 76 x10^3/uL (140-400); RED BLOOD COUNT 2.38 x10^6/uL (3.50-5.40); RED CELL DISTRIBUTION WIDTH 14.3 % (11.5-14.5); WHITE BLOOD COUNT 4.1 x10^3/uL (4.0-11.0)
[2017-10-15 05:50] LABS: ALBUMIN 2.7 g/dL (3.4-5.0); ALBUMIN/GLOBULIN RATIO 0.9 (1.0-1.7); ALK PHOS 104 U/L (46-116); ALT (SGPT) 20 U/L (14-59); ANION GAP 3 (6-14); AST (SGOT) 16 U/L (15-37); BLOOD UREA NITROGEN 10 mg/dL (7-20); BUN/CREATININE RATIO 17 (6-20); CALCIUM 8.9 mg/dL (8.5-10.1); CARBON DIOXIDE 32 mmol/L (21-32); CHLORIDE 99 mmol/L (98-107); CREATININE 0.6 mg/dL (0.6-1.0); GFR 103.8; GLUCOSE 102 mg/dL (70-99); POTASSIUM 4.4 mmol/L (3.5-5.1); SODIUM 134 mmol/L (136-145); TOTAL BILIRUBIN 0.5 mg/dL (0.2-1.0); TOTAL PROTEIN 5.8 g/dL (6.4-8.2)
[2017-10-15] MEDS: INSULIN ASPART 300 UNITS/3 ML INSULN.PEN SQ ×2 (07:56)
[2017-10-15] MEDS: TRIAMCINOLONE ACETONIDE 0.1% TOPICAL CREAM 15GM TUBE. TP ×4 (09:00→20:48)
[2017-10-15] MEDS: FUROSEMIDE 40 MG/4 ML VIAL. IVP ×2 (09:20)
[2017-10-15] MEDS ORDERED: LIDOCAINE 2%/EPI 1:100,000 20 ML VIAL. ×2 (11:24)
[2017-10-15] MEDS ORDERED: fentaNYL PF VIAL 250 MCG/5 ML VIAL ×2 (11:54)
[2017-10-15] MEDS ORDERED: MIDAZOLAM HCL/PF 5 MG/5 ML VIAL. ×2 (11:54)
[2017-10-15] MEDS: LIDOCAINE 2%/EPI 1:100,000 20 ML VIAL. IJ ×2 (13:30)
[2017-10-15] MEDS: BACITRACIN 50,000 UNIT in IV NORMAL SALINE 250ML 250 ML IRR (13:30)
[2017-10-15] MEDS: MIDAZOLAM HCL/PF 5 MG/5 ML VIAL. IV ×2 (13:32)
[2017-10-15] MEDS: fentaNYL PF VIAL 250 MCG/5 ML VIAL IV ×2 (13:32)
[2017-10-15] MEDS ORDERED: LIDOCAINE WITH 8.4% SOD BICARB 3 ML DISP.SYRIN. ×2 (13:32)
[2017-10-15] MEDS: SENNOSIDES/DOCUSATE 8.6/50MG TABLET. PO ×4 (14:39→20:47)
[2017-10-15] MEDS: POTASSIUM CHLORIDE 20 MEQ TABLET.ER. PO ×4 (14:39→20:47)
[2017-10-15] MEDS: FAMOTIDINE 20 MG TABLET. PO ×4 (14:39→20:47)
[2017-10-15] MEDS: ASPIRIN ENTERIC COATED 325 MG TABLET.DR. PO ×2 (14:39)
[2017-10-16] MEDS: oxyCODONE/APAP 5/325 1 TAB TABLET PO ×14 (01:24→23:27)
[2017-10-16 04:47] LABS: ADD MAN DIFF? NO
[2017-10-16 05:05] LABS: BASO % 0 % (0-3); EOS % 0 % (0-3); HEMATOCRIT 21.4 % (36.0-47.0); HEMOGLOBIN 7.3 g/dL (12.0-15.5); LYMPH # 0.7 x10^3/uL (1.0-4.8); LYMPH % 15 % (24-48); MEAN CORPUSCULAR HEMOGLOBIN 31 pg (25-35); MEAN CORPUSCULAR HGB CONC 34 g/dL (31-37); MEAN CORPUSCULAR VOLUME 90 fL (79-100); MONO # 0.4 x10^3/uL (0.0-1.1); MONO % 9 % (0-9); NEUT # 3.7 x10^3uL (1.8-7.7); NEUT % 77 % (31-73); PLATELET COUNT 131 x10^3/uL (140-400); RED BLOOD COUNT 2.39 x10^6/uL (3.50-5.40); RED CELL DISTRIBUTION WIDTH 14.5 % (11.5-14.5); WHITE BLOOD COUNT 4.8 x10^3/uL (4.0-11.0)
[2017-10-16 05:14] LABS: ANION GAP 5 (6-14); BLOOD UREA NITROGEN 13 mg/dL (7-20); CALCIUM 8.8 mg/dL (8.5-10.1); CARBON DIOXIDE 32 mmol/L (21-32); CHLORIDE 98 mmol/L (98-107); CREATININE 0.6 mg/dL (0.6-1.0); GFR 103.8; GLUCOSE 113 mg/dL (70-99); POTASSIUM 4.2 mmol/L (3.5-5.1); SODIUM 135 mmol/L (136-145)
[2017-10-16] MEDS: FAMOTIDINE 20 MG TABLET. PO ×4 (07:51→21:00)
[2017-10-16] MEDS: SENNOSIDES/DOCUSATE 8.6/50MG TABLET. PO ×4 (07:51→21:00)
[2017-10-16] MEDS: FUROSEMIDE 40 MG/4 ML VIAL. IVP ×2 (07:51)
[2017-10-16] MEDS: ASPIRIN ENTERIC COATED 325 MG TABLET.DR. PO ×2 (07:51)
[2017-10-16] MEDS: TRIAMCINOLONE ACETONIDE 0.1% TOPICAL CREAM 15GM TUBE. TP ×4 (07:52→21:00)
[2017-10-16] MEDS: POTASSIUM CHLORIDE 20 MEQ TABLET.ER. PO ×4 (07:52→21:02)
[2017-10-16] MEDS: MORPHINE SULFATE 4 MG/ML DISP.SYRIN. IV ×2 (08:17)
[2017-10-17] MEDS: oxyCODONE/APAP 5/325 1 TAB TABLET PO ×8 (03:23→11:41)
[2017-10-17 05:21] LABS: ADD MAN DIFF? NO
[2017-10-17 05:35] LABS: BASO % 0 % (0-3); EOS % 0 % (0-3); HEMATOCRIT 21.9 % (36.0-47.0); HEMOGLOBIN 7.3 g/dL (12.0-15.5); LYMPH # 0.7 x10^3/uL (1.0-4.8); LYMPH % 19 % (24-48); MEAN CORPUSCULAR HEMOGLOBIN 30 pg (25-35); MEAN CORPUSCULAR HGB CONC 33 g/dL (31-37); MEAN CORPUSCULAR VOLUME 89 fL (79-100); MONO # 0.3 x10^3/uL (0.0-1.1); MONO % 9 % (0-9); NEUT # 2.8 x10^3uL (1.8-7.7); NEUT % 72 % (31-73); PLATELET COUNT 164 x10^3/uL (140-400); RED BLOOD COUNT 2.45 x10^6/uL (3.50-5.40); RED CELL DISTRIBUTION WIDTH 14.3 % (11.5-14.5); WHITE BLOOD COUNT 3.8 x10^3/uL (4.0-11.0)
[2017-10-17 06:10] LABS: ANION GAP 7 (6-14); BLOOD UREA NITROGEN 10 mg/dL (7-20); CALCIUM 9.2 mg/dL (8.5-10.1); CARBON DIOXIDE 31 mmol/L (21-32); CHLORIDE 97 mmol/L (98-107); CREATININE 0.7 mg/dL (0.6-1.0); GFR 86.9; GLUCOSE 95 mg/dL (70-99); POTASSIUM 3.9 mmol/L (3.5-5.1); SODIUM 135 mmol/L (136-145)
[2017-10-17] MEDS: FUROSEMIDE 40 MG/4 ML VIAL. IVP ×2 (07:09)
[2017-10-17] MEDS: FAMOTIDINE 20 MG TABLET. PO ×2 (07:09)
[2017-10-17] MEDS: SENNOSIDES/DOCUSATE 8.6/50MG TABLET. PO ×2 (07:09)
[2017-10-17] MEDS: ASPIRIN ENTERIC COATED 325 MG TABLET.DR. PO ×2 (07:09)
[2017-10-17] MEDS: POTASSIUM CHLORIDE 20 MEQ TABLET.ER. PO ×2 (07:09)
[2017-10-17] MEDS: TRIAMCINOLONE ACETONIDE 0.1% TOPICAL CREAM 15GM TUBE. TP ×2 (09:00)
== END 2017-10-17 15:21 | disposition home or self-care (01) | DRG 216 ==
LOC: 1 WEST ICU 10-11 12:09 → 2 NORTH 10-15 20:00 → ER 08:17 → 2 SOUTH 12:45
PROC: 02RF08Z Replacement of Aortic Valve with Zooplastic Tissue, Open Approach (ICD-10-PCS; 2017-10-11 11:00)
PROC: 0PS004Z Reposition Sternum with Internal Fixation Device, Open Approach (ICD-10-PCS; principal; 2017-10-11 11:05)
PROC: 4A023N6 Measurement of Cardiac Sampling and Pressure, Right Heart, Percutaneous Approach (ICD-10-PCS; 2017-10-11 11:05)
PROC: 0BH17EZ Insertion of Endotracheal Airway into Trachea, Via Natural or Artificial Opening (ICD-10-PCS; 2017-10-11 11:05)
PROC: 30233L1 Transfusion of Nonautologous Fresh Plasma into Peripheral Vein, Percutaneous Approach (ICD-10-PCS; 2017-10-11 11:05)
PROC: 30233N1 Transfusion of Nonautologous Red Blood Cells into Peripheral Vein, Percutaneous Approach (ICD-10-PCS; 2017-10-11 11:05)
PROC: 30233R1 Transfusion of Nonautologous Platelets into Peripheral Vein, Percutaneous Approach (ICD-10-PCS; 2017-10-11 11:05)
PROC: 30233K1 Transfusion of Nonautologous Frozen Plasma into Peripheral Vein, Percutaneous Approach (ICD-10-PCS; 2017-10-11 11:05)
PROC: 0W9B30Z Drainage of Left Pleural Cavity with Drainage Device, Percutaneous Approach (ICD-10-PCS; 2017-10-11 11:05)
PROC: 0JH606Z Insertion of Pacemaker, Dual Chamber into Chest Subcutaneous Tissue and Fascia, Open Approach (ICD-10-PCS; 2017-10-11 11:05)
PROC: 02H63JZ Insertion of Pacemaker Lead into Right Atrium, Percutaneous Approach (ICD-10-PCS; 2017-10-11 11:05)
PROC: 02HK3JZ Insertion of Pacemaker Lead into Right Ventricle, Percutaneous Approach (ICD-10-PCS; 2017-10-11 11:05)
PROC: B2111ZZ Fluoroscopy of Multiple Coronary Arteries using Low Osmolar Contrast (ICD-10-PCS; 2017-10-11 11:05)
PROC: B2151ZZ Fluoroscopy of Left Heart using Low Osmolar Contrast (ICD-10-PCS; 2017-10-11 11:05)
PROC: 5A1935Z Respiratory Ventilation, Less than 24 Consecutive Hours (ICD-10-PCS; 2017-10-11 11:05)
DX: T82.857A Stenosis of other cardiac prosthetic devices, implants and grafts, initial encounter (principal); J96.01 Acute respiratory failure with hypoxia; I44.2 Atrioventricular block, complete; D69.6 Thrombocytopenia, unspecified; I27.20 Pulmonary hypertension, unspecified; I50.9 Heart failure, unspecified; J98.11 Atelectasis; I35.0 Nonrheumatic aortic (valve) stenosis; M19.90 Unspecified osteoarthritis, unspecified site; D64.9 Anemia, unspecified; E87.6 Hypokalemia; J45.909 Unspecified asthma, uncomplicated; Y83.1 Surgical operation with implant of artificial internal device as the cause of abnormal reaction of the patient, or of later complication, without mention of misadventure at the time of the procedure; Z79.82 Long term (current) use of aspirin; Z87.01 Personal history of pneumonia (recurrent); Z90.710 Acquired absence of both cervix and uterus; Z88.1 Allergy status to other antibiotic agents; Z91.040 Latex allergy status; Y92.89 Other specified places as the place of occurrence of the external cause
CPT/HCPCS: 32557; 33208; 36415; 36600; 71045; 71046; 71250; 76376; 80048; 80053; 81001; 82553; 82803; 82805; 82962; 83036; 83690; 83735; 83880; 84132; 84439; 84443; 84481; 84484; 85014; 85018; 85025; 85027; 85347; 85379; 85384; 85610; 85730; 86850; 86900; 86901; 86920; 86927; 87641; 87804; 87804-59; 88305; 88311; 93005; 93306; 93312; 93325; 93456; 93567; 96374; 97162-GP; 97166-GO; 97530-GO; 97530-GP; 97535-GO; 99152; 99153; 99285; 99285-25; A4215; C1713; C1729; C1757; C1769; C1771; C1773; C1781; C1785; C1817; C1892; C1894; C1898; G0269; J0171; J0282; J0690; J1265; J1644; J1650; J1815; J1885; J1940; J2150; J2250; J2270; J2405; J2704; J3010; J3370; J3475; J3480; J3490; J7030; J7050; J7120; P9016; P9017; P9035; P9041; P9045; P9046; S0028

== ENCOUNTER → 2019-02-22 | Outpatient (CLI) | payer BC ==
[2017-10-17 10:48] VITALS: BP 115/68
[~2019-02-22] MED LIST: ASPI-482 PO
--- NOTE | 2019-02-22 13:37 | NUR ---
pt here to have MRI- has ppm. pacemaker rep here and set pacemaker at DOO setting w/ rate of 90. initial b/p was 131/86. ending b/p was 135/86. rep changed setting back to DDD rate of 60-120 at end of MRI. pt tolerated procedure well.
--- NOTE | 2019-02-22 16:03 | RAD ---
EXAMINATION: Magnetic resonance imaging (MRI) of the cervical spine without contrast 02/22/2019 1:00 PM HISTORY: Cervical stenosis, cervical radiculopathy TECHNIQUE: Multiplanar multi-weighted MRI of the cervical spine was performed without intravenous contrast using the standard cervical spine protocol. Contrast information: None administered COMPARISON: None available. FINDINGS: There is minimal retrolisthesis of C5 on C6. There is mild disc height loss at C5-C6. Mild disc height loss at C4-C5 and C6-C7. Mild anterior marginal osteophytosis is identified from C4-C5 through C6-C7. Cervical spinal cord signal intensity is normal in all sequences. Skull base is intact. Sella and suprasellar cistern appear normal. Vertebral artery flow voids are maintained. Left vertebral artery is diminutive in caliber. Posterior fossa is normal in appearance. There is no prevertebral edema. No paraspinal soft tissue abnormality is identified. Danae heights are maintained. No marrow signal abnormality is identified. C2-C3: Disc is normal in configuration. No significant facet arthropathy. No neuroforaminal or spinal canal stenosis. C3-C4: There is mild disc bulge. There is mild bilateral facet arthropathy. Mild left neural foraminal stenosis. No spinal canal stenosis. C3-C4: No significant disc herniation. There is moderate left and mild right facet arthropathy. No significant uncovertebral joint disease. Mild to moderate left neuroforaminal stenosis. No spinal canal stenosis. C5-C6: There is a posterior disc osteophyte complex. There is mild facet and uncovertebral joint disease. There is mild bilateral neuroforaminal stenosis, left greater than right. There is moderate spinal canal stenosis, exacerbated by ligamentum flavum infolding. There is no compression of the cord or cord signal alteration. C6-C7: There is a disc bulge. Mild facet and uncovertebral joint disease. Mild bilateral neuroforaminal stenosis. No spinal canal stenosis. C7-T1: Disc is normal in configuration. No neuroforaminal or spinal canal stenosis. IMPRESSION: Mild degenerative changes of the cervical spine, most prominent at C5-C6 as described in detail above. Electronically signed by: Sylvia Carter MD (02/22/2019 4:00 PM) [facility]
== END | disposition home or self-care (01) ==
LOC: MRI 12:26
PROVIDERS: ATTEND Neurological Surgery
DX: M47.22 Other spondylosis with radiculopathy, cervical region (principal); M48.02 Spinal stenosis, cervical region; M50.223 Other cervical disc displacement at C6-C7 level; M25.78 Osteophyte, vertebrae; M12.88 Other specific arthropathies, not elsewhere classified, other specified site
CPT/HCPCS: 72141

== ENCOUNTER → 2019-05-29 | Outpatient (CLI) | payer BC ==
[2017-10-17 10:48] VITALS: BP 115/68
[~2019-05-29] MED LIST changes: +DOCU100C28 PO; +FURO40TA4 PO; +OXYC1TAB15 PO; +POTA10TA12 PO
[2019-05-29 16:07] LABS: BASO % 0 % (0-3); EOS % 0 % (0-3); HEMATOCRIT 45.3 % (36.0-47.0); HEMOGLOBIN 15.5 g/dL (12.0-15.5); LYMPH # 1.6 x10^3/uL (1.0-4.8); LYMPH % 25 % (24-48); MEAN CORPUSCULAR HEMOGLOBIN 30 pg (25-35); MEAN CORPUSCULAR HGB CONC 34 g/dL (31-37); MEAN CORPUSCULAR VOLUME 89 fL (79-100); MONO # 0.5 x10^3/uL (0.0-1.1); MONO % 7 % (0-9); NEUT # 4.2 x10^3/uL (1.8-7.7); NEUT % 68 % (31-73); PLATELET COUNT 150 x10^3/uL (140-400); RED CELL DISTRIBUTION WIDTH 13.6 % (11.5-14.5); WHITE BLOOD COUNT 6.3 x10^3/uL (4.0-11.0)
[2019-05-29 16:29] LABS: ALBUMIN 4.2 g/dL (3.4-5.0); ALBUMIN/GLOBULIN RATIO 1.2 (1.0-1.7); CALCIUM 9.8 mg/dL (8.5-10.1); CREATININE 0.8 mg/dL (0.6-1.0); GFR 73.9; POTASSIUM 3.6 mmol/L (3.5-5.1); TOTAL BILIRUBIN 0.5 mg/dL (0.2-1.0); TOTAL PROTEIN 7.7 g/dL (6.4-8.2)
== END | disposition home or self-care (01) ==
LOC: SURGPAT 13:36
PROVIDERS: ATTEND Neurological Surgery
DX: Z01.818 Encounter for other preprocedural examination (principal); M48.02 Spinal stenosis, cervical region; M54.12 Radiculopathy, cervical region
CPT/HCPCS: 36415; 80053; 82306; 85025; 87641

== ENCOUNTER 2019-06-05 07:17 | Observation (INO) | payer BC ==
--- NOTE | 2019-06-02 15:11 | HP ---
ADMIT DATE: 06/05/2019. PREOPERATIVE HISTORY AND PHYSICAL DATE OF SURGERY: 06/05/2019 HISTORY OF PRESENT ILLNESS: The patient is a pleasant 59-year-old who has had trouble with neck and left arm pain. She continues to have numbness in her left hand as well as headaches even after attempting physical therapy for treatment. She felt physical therapy made her worse. She has had [place], Excedrin and Tylenol for pain. She has had cervical epidural steroid injections as well as ablations with only temporary relief. She says that her pain is constant and she has difficulty sleeping. PAST MEDICAL HISTORY: Arthritis, artificial heart valve, asthma, chest pain, cold sores or fever blisters, headaches to migraines, heart attack or failure, heart murmur, heart pacemaker, heart trouble or disease, swelling of limbs. PAST SURGICAL HISTORY: Open heart surgery in 1998, hysterectomy in 2011, open heart surgery 2018, permanent pacemaker 2018. FAMILY HISTORY: Aneurysm, cancer, diabetes, heart problems and disease, hypertension, migraine headaches. SOCIAL HISTORY: Employed by [employer]. Single. Exercises daily. Denies tobacco use. Drinks alcohol 1-2 times per year. Drinks soda daily. ALLERGIES: LATEX, MOTRIN, NAPROSYN. CURRENT MEDICATIONS: Furosemide, potassium chloride, aspirin, [place], Excedrin Extra Strength. REVIEW OF SYSTEMS: A 12-point review of systems was obtained and is noncontributory except for that mentioned above. PHYSICAL EXAMINATION: NEUROSURGERY EXAMINATION: GENERAL APPEARANCE: Alert, pleasant, no acute distress. HEAD: Normocephalic and atraumatic. SKIN: Warm and dry. NECK AND THYROID: [id number] tenderness of palpation of posterior cervical region. MUSCULOSKELETAL: Cervical range of motion restricted, cervical paraspinal muscle bulk is normal. Normal range of motion of the upper extremities bilaterally. EXTREMITIES: No clubbing, cyanosis, or edema. NEUROLOGIC: Alert and oriented x 3, normal recent and remote memory. Speech is clear, strength 5/5 in upper and lower extremities bilaterally. Sensory; intact to touch in the upper and lower extremities except for decreased sensation in the ring and little fingers of the left hand, reflexes present and symmetric in upper and lower extremities, normal gait. IMAGING: I reviewed her cervical MRI scan. On that study, there is [id number] left foraminal narrowing at C5-C6, which is due to a left-sided disk bulging and cervical spondylosis. ASSESSMENT/ PLAN: She continues to have significant radicular symptoms. She has failed to improve with extensive conservative measures including epidural steroid injections and physical therapy. We continue to recommend an anterior cervical diskectomy and fusion at C5-C6. We reviewed the technique, risks, and expected postoperative course. She understands. She would like to go ahead. We will make the arrangements. BROOK ORTIZ MD DR: MATEO/any JOB#: [id number] / [id number] DASHA
[2019-06-05] VITALS (10 sets, daily range): BP systolic 104–155; BP diastolic 62–91
[~2019-06-05] VITALS: Ht 172.7 cm; Wt 85.7 kg
[~2019-06-05 07:17] MED LIST changes: +BACITRACIN 50,000 UNIT in IV NORMAL SALINE 1000ML BAG 1,000 ML IRR ONE; +BUPIVACAINE-EPI 0.5%-1:200000 MPF 30 ML VIAL. INJ ONE; -DOCU100C28 PO; +IV RINGERS,LACTATED 1000ML 1,000 ML IV SCH
[2019-06-05] MEDS ORDERED: GELATIN SPONGE SIZE 100. ONE (07:31)
[2019-06-05] MEDS ORDERED: THROMBIN TOPICAL 20,000 UNIT SPRAY.SYRN KIT TP ONE (07:32)
[2019-06-05] MEDS ORDERED: ceFAZolin 2GM PREMIX 2 GM/50 ML BAG IV ONE (08:00)
[2019-06-05] MEDS ORDERED: MIDAZOLAM HCL/PF 2 MG/2 ML VIAL. ONE (08:16)
[2019-06-05] MEDS ORDERED: ROCURONIUM 50 MG/5 ML VIAL. ONE (08:16)
[2019-06-05] MEDS ORDERED: REMIFENTANIL 2 MG VIAL. IV ONE (08:16)
[2019-06-05] MEDS ORDERED: PROPOFOL 20 ML IV ONE (08:17)
[2019-06-05] MEDS ORDERED: LIDOCAINE 2% PF 5 ML VIAL. ONE (08:17)
[2019-06-05] MEDS ORDERED: DESFLURANE > 120 MINUTES IH ONE (08:17)
[2019-06-05] MEDS ORDERED: PHENYLEPHRINE 10 MG/ML VIAL. ONE (08:17)
[2019-06-05] MEDS ORDERED: PROPOFOL 50 ML IV ONE ×2 (08:17→09:51)
[2019-06-05] MEDS ORDERED: DEXAMETHASONE SOD PHOS 20 MG/5 ML VIAL. ONE (08:17)
[2019-06-05] MEDS ORDERED: ONDANSETRON PF 4 MG/2 ML VIAL. ONE (08:18)
[2019-06-05] MEDS ORDERED: GLYCOPYRROLATE 1 MG/5 ML VIAL. ONE (08:21)
[2019-06-05] MEDS ORDERED: NEOSTIGMINE METHYLSULFATE 5 MG/5 ML SYRINGE. ONE (10:02)
[2019-06-05] MEDS ORDERED: fentaNYL PF VIAL 100 MCG/2 ML VIAL ONE ×3 (10:49→11:30)
[2019-06-05] MEDS: fentaNYL PF VIAL 100 MCG/2 ML VIAL IV PRN ×3 (11:25→11:45)
[2019-06-05] MEDS ORDERED: MORPHINE SULFATE 2 MG/ML VIAL. ONE (11:30)
--- NOTE | 2019-06-05 11:31 | OP ---
DATE OF SURGERY: 06/05/2019 PREOPERATIVE DIAGNOSES: Cervical foraminal narrowing with cervical radiculopathy and disc bulging at C5-C6. POSTOPERATIVE DIAGNOSES: Cervical foraminal narrowing with cervical radiculopathy and disc bulging at C5-C6. OPERATION PERFORMED: Anterior cervical microdiscectomy C5-C6, anterior cervical interbody fusion C5-C6, anterior cervical plate C5-C6. The operation was done with multimodality monitoring including EMG, SSEP, NIMS monitoring, motor evoked potentials. We also used fluoroscopy and microscopic dissection. SURGEON: Kt Ortiz M.D. STUNT MAN: AVRIL Meyers assisted with the surgery, assisted with the exposure, the microdiscectomy, fusion plate and closure. OPERATIVE INDICATIONS: The patient is a very pleasant 59-year-old who developed problems with intractable neck and left arm pain. She tried physical therapy as well as underwent epidural steroid injections, which did not give her any long lasting relief. On imaging studies at C5-C6, there is moderately severe left foraminal narrowing, which is due to left-sided disc bulging and spondylosis. I recommended an anterior cervical microdiscectomy and fusion. I spoke with her about the surgery, the risks, technique and expected postoperative course and she understood and wished to go ahead. DESCRIPTION OF PROCEDURE: Following general endotracheal anesthesia, the patient was positioned supine on the operating room table. The anterior cervical region was prepped and draped in standard fashion. BRIAN hose and AV impulse boots were applied for DVT prophylaxis. The microscope was draped. Fluoroscopy was draped and brought into field. Monitoring was established. Ancef 2 grams were given less than 1 hour prior to initiation of the surgery. Using fluoroscopic guidance, an incision was made from the midline around toward the right side directly over the C5-C6 interspace, I dissected down through subcutaneous tissue. I sharply divided the platysma and then passed around the medial aspect of sternocleidomastoid and carotid artery sheath down the anterior cervical vertebral body, reflected the trachea and esophagus contralaterally. I placed the anterior retractors wedged in the longus colli muscle and then I brought in the microscope and the remainder of surgery was done with the microscope using microscopic technique. Prior to placing the retractor, I assured myself that the carotid was in the appropriate position and that the esophagus was gently being retracted contralaterally. Then, I felt that the exposure was excellent. I did place 14 mm pins in C5 and C6 and incised the annulus with the microscope in place and distracted the disc space. I drilled the anterior spurring. I performed a generous discectomy with pituitary rongeurs. I scraped cartilaginous endplate. I drilled the posterior spurring and then used the 2 mm micro Kerrison's to open the annulus and ligament and exposed the dura and worked widely bilaterally. I assured myself that the neural foramina were open and I could easily pass a blunt hook out through each neural foramen. I measured and prepared and placed a 6 mm interbody fusion cage, which was packed with allograft and autograft bone. The autograft bone, I obtained from saving the bone from drilling away the spurring. This was gently tapped into position and I placed a 14 mm Camber plate and used 4 mm screws placing 4 screws without difficulty, which were then locked. I irrigated copiously with antibiotic solution. I removed the retractor at this point. I assured myself of perfect hemostasis. I closed the wound with absorbable suture and the skin was closed with 4-0 subcuticular stitch. The operation went very well. The patient was taken to recovery room in excellent condition. I was quite pleased with the surgery. KT ORTIZ MD DR: MATEO/any JOB#: [id number] / [id number] DASHA
--- NOTE | 2019-06-05 12:10 | NUR ---
Arrived to unit by bed from PACU. Alert and Oriented x's 4. Dressing on anterior neck is d/i with soft collar. Able to move all extremities easily. Has some numbness on left fingers due to carpal tunnel. Has a sore neck but is able to swallow without difficulty. Ice applied to neck area. O2 at 2l per n/c. IVF's intact and infusing. BRIAN's and KARLOS's on bilaterally. Oriented to room and controls. Side rails up x's 2 with call light in reach. Cont. monitor.
[2019-06-05] MEDS ORDERED: NALOXONE 0.4 MG/ML VIAL. IV PRN (12:45)
[2019-06-05] MEDS ORDERED: ACETAMINOPHEN 325 MG TABLET. PO PRN (12:45)
[2019-06-05] MEDS ORDERED: MAGNESIUM HYDROXIDE 2,400 MG/30 ML ORAL.SUSP. PO PRN (12:45)
[2019-06-05] MEDS ORDERED: oxyCODONE/APAP 5/325 1 TAB TABLET PO PRN ×2 (12:45)
[2019-06-05] MEDS ORDERED: MAG HYDROX/ALUMINUM HYD/SIMETH 30 ML ORAL.SUSP PO PRN (12:45)
[2019-06-05] MEDS ORDERED: CALCIUM CARBONATE 500 MG TAB.CHEW PO PRN (12:45)
[2019-06-05] MEDS ORDERED: METHOCARBAMOL 750 MG TABLET PO PRN (12:45)
[2019-06-05] MEDS ORDERED: fentaNYL PF VIAL 100 MCG/2 ML VIAL IVP PRN (12:45)
[2019-06-05] MEDS ORDERED: diphenhydrAMINE HCL 25 MG CAPSULE PO PRN (12:45)
[2019-06-05] MEDS ORDERED: ONDANSETRON PF 4 MG/2 ML VIAL. IV PRN (12:45)
[2019-06-05] MEDS ORDERED: ZOLPIDEM 5 MG TABLET. PO PRN (12:45)
[2019-06-05] MEDS ORDERED: 0.9 % SODIUM CHLORIDE 10 ML DISP.SYRIN. IV PRN (12:45)
[2019-06-05] MEDS: oxyCODONE/APAP 5/325 1 TAB TABLET PO PRN ×2 (13:17→19:16)
[2019-06-05] MEDS ORDERED: ceFAZolin SODIUM IV Push 1 GM VIAL. IVP SCH (14:00)
[2019-06-05] MEDS: ceFAZolin SODIUM IV Push 1 GM VIAL. IVP SCH (16:45)
[2019-06-05] MEDS: DOCUSATE SODIUM 100 MG CAPSULE. PO SCH (20:34)
[2019-06-05] MEDS: POTASSIUM CL 20MEQ D5-0.45NACL 1,000 ML IV SCH (20:34)
[2019-06-06] MEDS: oxyCODONE/APAP 5/325 1 TAB TABLET PO PRN ×4 (00:54→13:19)
[2019-06-06] MEDS: ceFAZolin SODIUM IV Push 1 GM VIAL. IVP SCH ×2 (00:55→07:53)
[2019-06-06] MEDS: POTASSIUM CL 20MEQ D5-0.45NACL 1,000 ML IV SCH (02:01)
[2019-06-06 02:35] VITALS: BP 123/73
[2019-06-06 06:19] VITALS: BP 119/70
[2019-06-06] MEDS ORDERED: HYDROmorphone 2 MG/ML VIAL IV PRN (07:00)
[2019-06-06] MEDS ORDERED: PROCHLORPERAZINE 10 MG/2 ML VIAL. IV PRN (07:00)
[2019-06-06] MEDS ORDERED: ONDANSETRON PF 4 MG/2 ML VIAL. IV PRN (07:00)
[2019-06-06] MEDS ORDERED: IV RINGERS,LACTATED 1000ML 1,000 ML IV SCH (07:00)
[2019-06-06] MEDS ORDERED: LIDOCAINE 1% PF 2 ML VIAL. ID PRN (07:00)
[2019-06-06] MEDS ORDERED: fentaNYL PF VIAL 100 MCG/2 ML VIAL IV PRN (07:00)
[2019-06-06] MEDS ORDERED: MORPHINE SULFATE 2 MG/ML VIAL. IV PRN (07:00)
[2019-06-06] MEDS: DOCUSATE SODIUM 100 MG CAPSULE. PO SCH (07:54)
[2019-06-06] MEDS ORDERED: FUROSEMIDE 40 MG TABLET. PO SCH (09:00)
[2019-06-06] MEDS ORDERED: POTASSIUM CHLORIDE 10 MEQ TABLET.ER. PO SCH (09:00)
--- NOTE | 2019-06-06 10:15 | NUR ---
orally reviewed discharge instructions with [place] reviewed restrictions to activities of daily living; driving bathing and lifting instructions. verbalized understanding.
[2019-06-06] MEDS ORDERED: DOCU100C28 PO (10:50)
--- NOTE | 2019-06-06 10:53 | DISCH ---
DISCHARGE INSTRUCTIONS Condition on Discharge Condition on Discharge: Stable Activity After Discharge Activity Instructions for Disc: Activity as tolerated, Avoid exertion, Walk in house Other activity instructions: ambulation is the only exercise gradually increase time and distance Bathing Instructions: Shower-keep dressing dry, No Tub Bath until see Lifting Instructions after Dis: No heavy lifting, No pulling or pushing, Do not lift >10 pounds Exercise Instruction after Dis: Walk 10 min, 3 x per day Driving Instructions after Dis: No driving for 2 weeks Weight Bearing Status after Di: No restrictions, Full weight bearing, As tolerated Diet after Discharge Diet after Discharge: Regular Additional Diet Restrictions: resume home diet Diet Texture: Regular Wound Incision Care Wound/Incision Care: Ice to area for comfort, Keep wound/cast CDI Other wound/incision instructi: may remove dressing after shower, pat area dry do not rub; may leave open t Checks after Discharge Checks after discharge: Check blood press - daily, Check your Temp as needed, Weigh Yourself Daily DC Comment: increase fruits, vegetables and fiber;attempt Bm q 2-3 days Contacting the after DC Call your doctor for: Concerns you may have Follow-Up Follow Up With: call [phone] for a 2 week post op appt with Dr. Ortiz' s nurse Treatment/Equipment after DC Adaptive Equipment Issued: None Comment: no driving for 1 week BROOK ORTIZ MD Jun 06, 2019 10:53
--- NOTE | 2019-06-06 11:09 | DS ---
DATE OF DISCHARGE: 06/06/2019 DISCHARGE DIAGNOSES: Cervical foraminal narrowing with cervical radiculopathy and disk bulging at C5-C6. OPERATION PERFORMED: Anterior cervical microdiskectomy and fusion, C5-C6. HISTORY OF PRESENT ILLNESS: The patient is a pleasant 59-year-old who developed problems with intractable neck and left arm pain. She tried physical therapy as well as epidural steroid injections, which did not give her lasting relief. On imaging studies at C5-C6, there was moderately severe left foraminal narrowing, which is due to left-sided disk bulging and spondylosis. I recommended an ACDF at C5-C6. I spoke with her about the surgery, the risks, the technique and the expected postoperative course. She understood and wished to proceed. HOSPITAL COURSE: She was admitted to the floor postoperatively where she did well. She has been up ambulating in the room and in the halls with physical therapy. Instruction was given to her regarding her activities. Pain is well controlled and she is in good condition to discharge home. She does note improvement in her upper extremity symptoms and shoulder pain. Her voice is clear. DISCHARGE MEDICATIONS: She will resume her medications per the MRAD. DISCHARGE INSTRUCTIONS: She was instructed regarding incision care, activity restrictions and expectations for the next several weeks. She will follow up in the office in 2 weeks. She understands to call with any questions or concerns. BROOK ORTIZ MD DR: OANH/any JOB#: [id number] / [id number]
[2019-06-06 12:00] VITALS: BP 140/70
--- NOTE | 2019-06-06 13:00 | NUR ---
reviewed written discharge instructions regarding incisional care , wearing of soft collar, bathing and lifting restrictions. script given for pain medication. she verbalized understanding of instructions and made her dr cody. awaiting ride
--- NOTE | 2019-06-06 14:00 | NUR ---
dismissed to home with her personal belongings clothing phone fan and clothing
--- NOTE | 2019-06-06 16:06 | PATHOLOGY ---
[facility] Accession Number: [id number] . 01 Material submitted: . vertebral column - CERVICAL DISC . 01 Clinical history: . Cervical stenosis and radiculopathy . 02 Diagnosis: Bone and cartilage, "cervical disc, C5-6": - Fragments of bone and cartilage consistent with disc material. . (SHA:mml; 06/06/2019) QLM 06/06/2019 1257 Local . 02 Electronically signed: . Marcus Salazar MD, Pathologist NPI- [id number] . 01 Gross description: . Received in formalin labeled "Oneal, [place], cervical disc," are several pieces of glistening, fibrous tissue measuring 3.0 x 2.5 x 0.6 cm in aggregate dimensions, containing small fragments of possible bone. The specimen is filtered and entirely submitted in cassette A1, following decalcification. (TSD; 06/05/2019) TOB/TOB 06/05/2019 1853 Local . 02 Pathologist provided ICD-10: M48.02, M54.12 . 02 CPT . 577111, [id number] Specimen Comment: A courtesy copy of this report has been sent to Specimen Comment: [phone], . Specimen Comment: Report sent to / DR RAMIREZ Performed at: 01 [facility] [address], [place] [id number] MD Omar Ivory MD Phone: [phone] Performed at: 02 [facility] [address] [place], [place] [id number] MD Basil Adair MD Phone: [phone]
== END 2019-06-06 14:00 | disposition home or self-care (01) ==
LOC: SURG 07:17 → 4 SOUTHEST 12:34
PROVIDERS: ADMIT Neurological Surgery; ATTEND Neurological Surgery
DX: M47.22 Other spondylosis with radiculopathy, cervical region (principal); M48.02 Spinal stenosis, cervical region; M19.90 Unspecified osteoarthritis, unspecified site; J45.909 Unspecified asthma, uncomplicated; G43.909 Migraine, unspecified, not intractable, without status migrainosus; I25.2 Old myocardial infarction; Z82.49 Family history of ischemic heart disease and other diseases of the circulatory system; Z90.710 Acquired absence of both cervix and uterus; Z95.0 Presence of cardiac pacemaker; Z95.2 Presence of prosthetic heart valve; Z83.3 Family history of diabetes mellitus
CPT/HCPCS: 20930; 20936; 22551; 76000; 88304; 88311; 96374; 96375; 97116; 97162; 97530; A7015; C1713; G0378; G0379; J0690; J0696; J1100; J2001; J2250; J2270; J2405; J2704; J2710; J3010; J3490; J7030

== ENCOUNTER → 2019-08-22 | Outpatient (CLI) | payer BC ==
[~2019-08-22] MED LIST changes: -BACITRACIN 50,000 UNIT in IV NORMAL SALINE 1000ML BAG 1,000 ML IRR ONE; -BUPIVACAINE-EPI 0.5%-1:200000 MPF 30 ML VIAL. INJ ONE; +DOCU100C28 PO; -IV RINGERS,LACTATED 1000ML 1,000 ML IV SCH
--- NOTE | 2019-08-22 15:30 | NUR ---
Pt here for MRI. Pacemaker rep here to adjust settings. Pt tolerated well, VSS, monitored throughout by RN. MARGARETH RN
--- NOTE | 2019-08-22 16:05 | RAD ---
MR of the left knee HISTORY: Left knee pain after a fall one month ago. TECHNIQUE: Routine multiplanar sequences are obtained. FINDINGS: No evidence of medial meniscal tear. Blunting and irregularity at the body of the lateral meniscus compatible with a tear. Anterior and posterior cruciate ligaments appear intact. Medial collateral ligament intact. Iliotibial band unremarkable. Fibular collateral ligament, biceps femoris tendon and popliteus tendon are intact. Extensor mechanism intact. Moderate joint effusion. Severe chondromalacia at the upper patella with subchondral cystic change. Mild chondromalacia at the lateral joint compartment. No acute fracture. No aggressive bone destruction. No significant Dalton's cyst. IMPRESSION: 1. Lateral meniscal tear. 2. Severe chondromalacia at the patella. Electronically signed by: Mayito Watts MD (08/22/2019 4:02 PM) [facility]
== END | disposition home or self-care (01) ==
LOC: MRI 14:32
PROVIDERS: ATTEND Orthopaedic Surgery
DX: S83.282A Other tear of lateral meniscus, current injury, left knee, initial encounter (principal); M25.462 Effusion, left knee; M94.262 Chondromalacia, left knee; W19.XXXA Unspecified fall, initial encounter; Y93.89 Activity, other specified; Y92.89 Other specified places as the place of occurrence of the external cause; Y99.8 Other external cause status
CPT/HCPCS: 73721

== ENCOUNTER 2021-05-11 10:18 | Emergency (ER) | payer BC | END 2021-05-11 11:08 | disposition left against medical advice (07) | LOC: ER 10:18 | DX: S89.92XA Unspecified injury of left lower leg, initial encounter (principal); Z53.21 Procedure and treatment not carried out due to patient leaving prior to being seen by health care provider; X58.XXXA Exposure to other specified factors, initial encounter; Y93.89 Activity, other specified; Y92.89 Other specified places as the place of occurrence of the external cause; Y99.8 Other external cause status ==

== ENCOUNTER → 2021-07-30 | Outpatient (CLI) | payer BC ==
--- NOTE | 2021-07-30 10:29 | RAD ---
Examination: Left Lower Extremity Venous Doppler Ultrasound History: Left leg pain Comparison: None Procedure: Morris scale, color flow 2D and spectal waveform analysis images are obtained with and witho ut compression in the area of the common femoral vein, superficial femoral vein - femoral vein juncti on, main femoral vein (superficial femoral vein) and popliteal vein. Veins of the proximal calf are a lso imaged. Findings: There is normal duplex flow, color flow and compressibility of all visualized vein segments. No evide nce of deep venous thrombus is present.. No evidence of fluid collection identified in the left mid c nursing home region. Impression: No evidence of DVT in the left lower extremity venous system. Electronically signed by: Gilberto Durbin MD (07/30/2021 10:27 AM) [id number]
== END ==
LOC: US 09:52
PROVIDERS: ATTEND Specialist
DX: M79.605 Pain in left leg (principal); M79.89 Other specified soft tissue disorders
CPT/HCPCS: 93971